=== PATIENT | male | born 1955 | race Caucasian/White ===

== ENCOUNTER → 2024-12-02 16:37 | Outpatient (REF) | payer BC, SELFPAY | LOC: RAD 16:37 | PROVIDERS: ATTENDING PHYSICIAN Family Medicine | DX: M25.571 Pain in right ankle and joints of right foot (principal) | CPT/HCPCS: 73600 ==

== ENCOUNTER → 2024-12-11 10:32 | Outpatient (REF) | payer BC, SELFPAY | LOC: RAD 10:32 | PROVIDERS: ATTENDING PHYSICIAN Family Medicine | DX: Q39.4 Esophageal web (principal) | CPT/HCPCS: 74246 ==

== ENCOUNTER 2024-12-30 06:23 | Day surgery (SDC) | payer BC, SELFPAY | END 2024-12-30 14:42 | disposition home or self-care (01) | LOC: GI 06:23 | PROVIDERS: ATTENDING PHYSICIAN Internal Medicine Gastroenterology; FAMILY PHYSICIAN Specialist | DX: R13.10 Dysphagia, unspecified (principal); K22.2 Esophageal obstruction; K44.9 Diaphragmatic hernia without obstruction or gangrene; K22.89 Other specified disease of esophagus; K29.80 Duodenitis without bleeding | CPT/HCPCS: 43249; 43239; 88305; 88342 ==